=== PATIENT | female | born 1945 | race Caucasian/White ===

== ENCOUNTER 2023-12-17 23:06 | Emergency (ER) | payer MEDICARE, SELFPAY ==
--- NOTE | ~2023-12-17 | XR_ITS ---
EXAMINATION: XR chest 2V Exam Date/Time: 12/17/2023 23:35 CDT HISTORY: syncopal episode Comparison: 08/16/2015. RESULT: Lines, tubes, and devices: None. Lungs and pleura: Patchy subsegmental airspace disease in the left lower lung. Bilateral linear atel ectasis and scar. Senescent changes. Cardiomediastinal silhouette: Stable. Other: No acute osseous or upper abdominal finding. Likely enchondroma in the proximal right humerus . IMPRESSION: Subsegmental left lower lung airspace disease may represent atelectasis or consolidation. Reviewed, dictated and finalized at location K. IMPRESSION: Subsegmental left lower lung airspace disease may represent atelectasis or cons olidation.
--- NOTE | ~2023-12-17 | CT_ITS ---
EXAMINATION: CT brain wo con DATE: 12/18/2023 00:42 INDICATION: Syncope. TECHNIQUE: Computed tomography (CT) of the head was performed without intravenous contrast. The mA wa s adjusted according to patient size. Iterative reconstruction technique was employed. The dose-lengt h product was 605.33 mGy-cm. COMPARISON: Head CT 02/09/2008 FINDINGS: There are scattered areas of low attenuation in the cerebral white matter, which is within normal limits for the patient's age. There is no intracranial hemorrhage, acute infarction, or abnorm al intracranial mass lesion. The ventricles are normal in size. There is mild mucosal thickening in t he paranasal sinuses. The mastoid air cells are normal. The orbits are normal. IMPRESSION: 1. Normal aging brain. Reviewed, dictated and finalized at location A. IMPRESSION: 1. Normal aging brain.
[2023-12-17 23:07] VITALS: BP 139/66; PULSE 50; RESP 19; TEMP 36.5; O2SAT 99
[2023-12-17 23:15] VITALS: BP 130/70; PULSE 50; PULSE 51; RESP 16; O2SAT 100
--- NOTE | 2023-12-17 23:17 | ECG_ITS ---
Test Date: 2023-12-17 23:54:28 Measurements Intervals [employer] Rate: 50 P: 76 IA: 164 QRS: 17 QRSD: 93 T: 44 QT: 473 QTc: 432 Interpretive Statements SINUS BRADYCARDIA No previous ECG available for comparison Electronically Signed On 12-18-2023 09:29:09 CDT by Fabi Orozco M.D.
[2023-12-17 23:54] LABS: Glucose Point of Care 92 mg/dl (65-105)
[2023-12-18] VITALS: BP 153/81; PULSE 50; RESP 19; O2SAT 99
--- NOTE | 2023-12-18 00:06 | ED.SYNCOPE ---
HPI - Syncope General Chief Complaint: Syncope Stated Complaint: weakness Time Seen by Provider: 12/17/23 23:34 History of Present Illness HPI narrative: This is a 78-year-old female with a past medical history significant for colonic polyps, sinus bradycardia. Today she presents to the emergency department for a chief complaint of a potential syncopal episode. Patient is currently undergoing a prep for colonoscopy that is scheduled for 11:00 a.m. tomorrow. She has been using the restroom throughout the day and having loose watery stools. Patient has been spending most her time in the bathroom. Today family noticed that she had a blank staring off into space episode after using the restroom that was short lived and self-limited. Patient quickly regained consciousness and is back to her normal state of health and answering all questions appropriately. This is happened in the past according to the family members during her last colonoscopy prep as well. Patient presently is at her baseline mentation and denies any symptoms whatsoever. She denies any headache, vision change, nausea, vomiting, chest pain, shortness a breath, abdominal pain, back pain, fever, chills. Patient does have loose watery stools secondary to the colonoscopy prep. No recent sick contacts or other injuries. No trauma associated with this episode. Related Data Home Medications Medication Instructions Recorded Confirmed Adults Multivitamin 1 tablet PO DAILY 12/02/23 12/02/23 Fish Oil 1,000 mg PO DAILY 12/02/23 12/02/23 ascorbic acid (vitamin C) 500 mg PO DAILY 12/02/23 12/02/23 biotin 1,000 mcg PO BID 12/02/23 12/02/23 duloxetine 30 mg capsule,delayed 30 mg PO DAILY 12/02/23 12/02/23 release fiber See Rx Instructions .Route .COMPLEX 12/02/23 12/02/23 levothyroxine 112 mcg tablet 112 mcg PO DAILY 12/02/23 12/02/23 lisinopril 10 mg tablet 10 mg PO DAILY 12/02/23 12/02/23 oxybutynin chloride 5 mg tablet See Rx Instructions .Route .COMPLEX 12/02/23 12/02/23 simvastatin 20 mg tablet 20 mg PO DAILY 12/02/23 12/02/23 Allergies Allergy/AdvReac Type Severity Reaction Status Date / Time prednisone Allergy Intermediate FLUSHED Verified 12/17/23 23:15 tramadol Allergy Intermediate FLUSHED Verified 12/17/23 23:15 Review of Systems Review of Systems: As reviewed above in the [facility] Social History Social History Smoking status: Never smoker Alcohol intake: never Substance use: never Substance use type: does not use Living arrangements: with family Spiritual care concerns: No Exam Narrative: GENERAL: [Well-appearing, well-nourished, and in no acute distress.] HEAD: [Normocephalic, atraumatic.] EYES: [PERRLA and EOMI.] ENT: Nares clear, no rhinorrhea or epistaxis. Mucous membranes moist. NECK: Supple. CHEST: [Clear to auscultation. No respiratory distress.] HEART: [Regular rate and rhythm]. No murmur heard. [Normal peripheral pulses.] ABDOMEN: [Soft, nondistended], [nontender], [No rigidity or guarding] EXTREMITIES: Normal range of motion. [No edema.] SKIN: Warm, dry, no rash. NEURO: [No focal deficits]. Alert and oriented [x3.] No ataxia in the arms or legs. Full strength and sensation in both arms and legs. PSYCH: [Normal mood and affect.] Course Vital Signs Vital signs: Vital Signs Temperature 36.5 C 12/17/23 23:07 Pulse Rate 50 L 12/17/23 23:07 Respiratory Rate 19 12/17/23 23:07 Blood Pressure 139/66 12/17/23 23:07 Pulse Oximetry 99 12/17/23 23:07 Oxygen Delivery Room Air 12/17/23 23:07 Temperature 36.5 C 12/17/23 23:07 Pulse Rate 55 L 12/18/23 03:17 Respiratory Rate 20 12/18/23 03:17 Blood Pressure 140/72 12/18/23 03:17 Pulse Oximetry 97 12/18/23 03:17 Oxygen Delivery Room Air 12/17/23 23:07 MDM - Syncope MDM Narrative Medical decision making narrative: This is a 78-year-old female with a past medical hi
[2023-12-18] MEDS: LACTATED RINGERS 1,000 ML 999 ML IV CONT (00:18)
[2023-12-18 00:19] LABS: Basophils Percent Auto 0.2 % (0.2-1.2); Eosinophils Percent Auto 0.5 % (0-4.4); Hematocrit 41.3 % (37.0-47.0); Immature Granulocyte Absolute 0.05 K/mm3 (0.00-0.031); Immature Granulocyte Percent A 0.6 % (0-0.5); Lymphocytes Absolute Auto 1.52 K/mm3 (0.9-3.2); Lymphocytes Percent Auto 18.6 % (18.3-44.2); Mean Corpuscular HGB Conc 33.9 g/dl (32-36); Mean Corpuscular Hemoglobin 35.7 pg (26-34); Mean Corpuscular Volume 105.4 fl (80-100); Mean Platelet Volume 10.7 fl (7.4-10.4); Monocytes Absolute Auto 0.5 K/mm3 (0.1-0.6); Monocytes Percent Auto 5.5 % (2.6-8.5); Neutrophils Absolute Auto 6.1 K/mm3 (1.3-6.7); Neutrophils Percent Auto 74.6 % (45.5-73.1); Platelet Count Result 183 k/mm3 (150-375); Red Blood Count 3.92 M/mm3 (4.2-5.4); Red Cell Distribution Width 13.8 % (11.5-14.5); White Blood Count 8.2 K/mm3 (4.5-10.0)
[2023-12-18 00:33] LABS: Alanine Aminotransferase 17 U/L (6-35); Alkaline Phosphatase 56 U/L (38-126); Anion Gap 8 mmol/L (4-12); Aspartate Amino Transferase 28 U/L (14-36); Bilirubin,Total 0.6 mg/dL (0.2-1.3); Blood Urea Nitrogen 15 mg/dL (7-17); Calcium 8.7 mg/dL (8.4-10.2); Carbon Dioxide 28 mmol/L (22-30); Chloride 94 mmol/L (98-107); Estimated CRCL calculation 62 ml/min; Estimated Glomerular Filt Rate > 60; Glucose 94 mg/dL (65-110); Potassium 3.6 mmol/L (3.4-5.0); Sodium 130 mmol/L (137-145)
[2023-12-18 00:43] LABS: Platelet Estimate Adequate (Adequate)
[2023-12-18 00:44] LABS: Ovalocytes 1+
[2023-12-18 00:45] LABS: Schistocytes None Seen
[2023-12-18 02:00] VITALS: BP 143/71; PULSE 51; RESP 17; O2SAT 98
[2023-12-18 03:17] VITALS: BP 140/72; PULSE 55; RESP 20; O2SAT 97
[2023-12-18 04:50] VITALS: BP 143/71; PULSE 60; RESP 20; O2SAT 99
== END 2023-12-18 04:50 | disposition home or self-care (01) ==
PROVIDERS: Emergency Provider Student in an Organized Health Care Education/Training Program; PCP Internal Medicine
DX: I95.1 Orthostatic hypotension (principal); E86.0 Dehydration; Z86.010 Personal history of colon polyps; Z79.899 Other long term (current) drug therapy
CPT/HCPCS: 36415; 70450; 71046; 80053; 82948; 85025; 93005; 96360; 99284; J7120

== ENCOUNTER 2023-12-18 01:13 | Day surgery (SDC) | payer MEDICARE, SELFPAY ==
[2023-12-02 14:26] VITALS: BMI 35.5
[2023-12-18 09:57] VITALS: BP 132/78; PULSE 65; RESP 18; TEMP 36.2; O2SAT 92; BMI 35.8
--- NOTE | 2023-12-18 10:45 | WPDANESEPPF ---
Anes - Initial Pre Proc Eval Procedure: Operation Date: 12/18/23 11:00 Proposed Procedures p Colonoscopy - Ho Romano MD Date/Time: 12/18/23 10:45 Surgeon: Ho Romano MD Pre Op Diagnosis: Personal history colon polyps Patient Data Age: 78 Gender: F Height: 1.6 m Weight: 91.7 kg Last Vital Signs Temp 36.2 C L 12/18/23 09:57 Pulse 65 12/18/23 09:57 Resp 18 12/18/23 09:57 BP 132/78 12/18/23 09:57 Pulse Ox 92 12/18/23 09:57 O2 Del Method Room Air 12/18/23 09:57 Allergies Allergy/AdvReac Type Severity Reaction Status Date / Time prednisone Allergy Intermediate FLUSHED Verified 12/18/23 10:03 tramadol Allergy Intermediate FLUSHED Verified 12/18/23 10:03 Home Medications Medication Instructions Recorded Confirmed Type Adults Multivitamin 1 tablet PO DAILY 12/02/23 12/18/23 History Fish Oil 1,000 mg PO DAILY 12/02/23 12/18/23 History ascorbic acid (vitamin C) 500 mg PO DAILY 12/02/23 12/18/23 History biotin 1,000 mcg PO BID 12/02/23 12/18/23 History duloxetine 30 mg capsule,delayed 30 mg PO DAILY 12/02/23 12/18/23 History release fiber See Rx Instructions .Route .COMPLEX 12/02/23 12/18/23 History levothyroxine 112 mcg tablet 112 mcg PO DAILY 12/02/23 12/18/23 History lisinopril 10 mg tablet 10 mg PO DAILY 12/02/23 12/18/23 History oxybutynin chloride 5 mg tablet See Rx Instructions .Route .COMPLEX 12/02/23 12/18/23 History simvastatin 20 mg tablet 20 mg PO DAILY 12/02/23 12/18/23 History Patient hx anesthesia problems: none Family hx anesthesia problems: none Results Review: All pre-operative results and documents have been reviewed as part of the pre-operative evaluation. [facility] Past Medical History Medical History (Updated 12/18/23 @ 10:46 by Esteban Ayon MD) HTN (hypertension) Obesity LAURA (obstructive sleep apnea) Surgical History Surgical History H/O laparoscopy History of total knee arthroplasty Social History Social History Smoking status: Never smoker Alcohol intake: never Substance use: never Substance use type: does not use Living arrangements: with family Spiritual care concerns: No Anes - Eval Final PreProcedure Day of Procedure 12/18/23 10:45 Patient weight: obese Heart: regular rate and rhythm Lungs: clear to auscultation Airway: Mallampati scale class II Neurological: alert and oriented Last oral intake: >/= 8 hours ASA classification: III Emergent: no Anesthetic plan: proceed Anesthesia type and monitoring: general GIVS and standard monitoring Results Review: All pre-operative results and documents have been reviewed as part of the pre-operative evaluation. Informed Consent: The patient's anesthetic plan and its attendant risks and benefits were discussed with the patient/family/POA. Questions were solicited and answers provided to the satisfaction of the patient/family/POA.
[2023-12-18] MEDS: LACTATED RINGERS 1,000 ML 150 ML IV CONT (10:46)
--- NOTE | 2023-12-18 11:26 | PM.HPGS ---
History of Present Illness History of Present Illness Consent: Risks, benefits, and alternatives have been discussed and questions answered. Patient agrees to proceed with procedure. Chief complaint: Personal history colon polyps Narrative: Estela Rodriges is a 78 year old female with colon polyp 5 years ago Review of Systems Review of Systems: All systems reviewed & are unremarkable except as noted in HPI and below PMFSH Past Medical History Medical History (Updated 12/18/23 @ 11:29 by Ho Romano MD) Colon polyp HTN (hypertension) Obesity LAURA (obstructive sleep apnea) Surgical History Surgical History H/O laparoscopy History of total knee arthroplasty Social History Social History Smoking status: Never smoker Alcohol intake: never Substance use: never Substance use type: does not use Living arrangements: with family Spiritual care concerns: No Meds Home Medications and Allergies Home Medications Medication Instructions Recorded Confirmed Type Adults Multivitamin 1 tablet PO DAILY 12/02/23 12/18/23 History Fish Oil 1,000 mg PO DAILY 12/02/23 12/18/23 History ascorbic acid (vitamin C) 500 mg PO DAILY 12/02/23 12/18/23 History biotin 1,000 mcg PO BID 12/02/23 12/18/23 History duloxetine 30 mg capsule,delayed 30 mg PO DAILY 12/02/23 12/18/23 History release fiber See Rx Instructions .Route .COMPLEX 12/02/23 12/18/23 History levothyroxine 112 mcg tablet 112 mcg PO DAILY 12/02/23 12/18/23 History lisinopril 10 mg tablet 10 mg PO DAILY 12/02/23 12/18/23 History oxybutynin chloride 5 mg tablet See Rx Instructions .Route .COMPLEX 12/02/23 12/18/23 History simvastatin 20 mg tablet 20 mg PO DAILY 12/02/23 12/18/23 History Allergies Allergy/AdvReac Type Severity Reaction Status Date / Time prednisone Allergy Intermediate FLUSHED Verified 12/18/23 10:03 tramadol Allergy Intermediate FLUSHED Verified 12/18/23 10:03 Vital Signs Vital Signs - 24 hr 12/18/23 09:57 Temperature 97.2 F L Pulse Rate 65 Respiratory Rate 18 Blood Pressure 132/78 Pulse Oximetry 92 Oxygen Delivery Room Air Exam Const: General: comfortable and no acute distress HENMT: Face/Nose/Sinus: Normal nares present Eyes: General: appearance normal, both eyes and all related structures Neck: Neck: no JVD Resp: Auscultation: clear to auscultation bilaterally Cardio: Rate: regular rate Rhythm: regular rhythm GI: Inspection: non-distended GI Palp: Yes Soft to palpation Skin: General skin exam: normal color Neuro: General: gait normal Speech: normal speech Extrem: General: normal to inspection Psych: Mental Status: mental status grossly normal Assessment and Plan Assessment and plan (1) Colon polyp: Code(s): K63.5 - Polyp of colon Status: Acute Assessment and Plan: colonoscopy
[2023-12-18 11:58] VITALS: BP 86/55; PULSE 90; RESP 22; O2SAT 97
[2023-12-18 12:08] VITALS: BP 111/59; PULSE 85; RESP 18; O2SAT 99
[2023-12-18 12:17] VITALS: BP 120/63; PULSE 85; RESP 18; O2SAT 100
== END 2023-12-18 12:36 | disposition home or self-care (01) ==
PROVIDERS: PCP Internal Medicine; Visit Provider Internal Medicine Gastroenterology
PROC: 0DJD8ZZ Inspection of Lower Intestinal Tract, Via Natural or Artificial Opening Endoscopic (ICD-10-PCS; CPT 45378; principal; 2023-12-18 11:00)
DX: Z12.11 Encounter for screening for malignant neoplasm of colon (principal); D12.3 Benign neoplasm of transverse colon; D12.5 Benign neoplasm of sigmoid colon; K64.8 Other hemorrhoids; I10 Essential (primary) hypertension; G47.33 Obstructive sleep apnea (adult) (pediatric); E66.9 Obesity, unspecified; Z68.35 Body mass index [BMI] 35.0-35.9, adult
CPT/HCPCS: 45385; 70450; 88305; 96360; J2704; J7120